=== PATIENT | female | born 1955 | race Two or more races ===

== ENCOUNTER → 2018-10-05 | Day surgery (SDC) | payer OTHER | END | disposition home or self-care (01) | LOC: ADM 10-03 14:45 → AMB-ENDOS 07:07 | DX: K62.7 Radiation proctitis (principal); K94.03 Colostomy malfunction ==

== ENCOUNTER 2018-11-04 09:27 | Inpatient (IN) | payer OTHER ==
[~2018-11-04] VITALS: Ht 154.9 cm; Wt 72.6 kg
[2018-11-04] MEDS ORDERED: ATORVASTATIN CA40 MG PO (09:47)
[2018-11-04] MEDS ORDERED: JANUMET 50-1,01 EACH (09:50)
[2018-11-04] MEDS ORDERED: FENOFIBRATE160 MG (09:50)
[2018-11-04] MEDS ORDERED: RESTORIL30 M1 PO (09:51)
[2018-11-04] MEDS ORDERED: LISINOPRIL20 MG (09:52)
[2018-11-04] MEDS ORDERED: ZOCOR40 MG (09:52)
[2018-11-04] MEDS ORDERED: LOVAZA1 GM (09:53)
[2018-11-04] MEDS ORDERED: VITAMIN D-32000 UNIT (09:53)
[2018-11-04] MEDS ORDERED: PROTONIX40 MG (09:54)
[2018-11-04] MEDS ORDERED: PAROXETINE HCL20 MG (09:54)
--- NOTE | 2018-11-04 09:57 | NUR ---
PTE FEMENINA DE 62 YRS LLEGA EN AMBULANCIA POR OBSTRUCION Y DOLOR ABDOMINAL DESDE CARINE. PTE CON COLOSTOMIA TAPADA.ES PACIENTE DEL .
--- NOTE | 2018-11-04 11:05 | NUR ---
SE ORIENTA PTE SORBE EL TRATAMIENTO ORDENADO POR EL DR COVARRUBIAS PTE ALERTA Y CONCIENTE POR 3 RN DOWNEY REALIZA MUESTRAS DE LABOTORIO Y ADMINISTRA MEDICAMENTO KARY ORDENADO PTE SE MANTIENE EN OBSERVACION
== END 2018-11-09 18:07 | disposition home or self-care (01) | DRG 354 ==
LOC: ER 09:27 → SURH 12:56
PROVIDERS: ADMIT Colon & Rectal Surgery
PROC: 02HV33Z Insertion of Infusion Device into Superior Vena Cava, Percutaneous Approach (ICD-10-PCS; 2018-11-05)
PROC: 3E0336Z Introduction of Nutritional Substance into Peripheral Vein, Percutaneous Approach (ICD-10-PCS; 2018-11-05)
PROC: 0WQF0ZZ Repair Abdominal Wall, Open Approach (ICD-10-PCS; principal; 2018-11-06 13:30)
DX: K94.03 Colostomy malfunction (principal); K43.3 Parastomal hernia with obstruction, without gangrene; K56.690 Other partial intestinal obstruction; K62.7 Radiation proctitis; E78.49 Other hyperlipidemia; F32.9 Major depressive disorder, single episode, unspecified; E11.9 Type 2 diabetes mellitus without complications; F41.8 Other specified anxiety disorders

== ENCOUNTER 2018-11-13 02:02 | Emergency (ER) | payer OTHER ==
[~2018-11-13] VITALS: Ht 154.9 cm; Wt 64.9 kg
[~2018-11-13 02:02] MED LIST: ATORVASTATIN CA40 MG PO; FENOFIBRATE160 MG; JANUMET 50-1,01 EACH; LISINOPRIL20 MG; LOVAZA1 GM; PAROXETINE HCL20 MG; PROTONIX40 MG; RESTORIL30 M1 PO; VITAMIN D-32000 UNIT; ZOCOR40 MG
[2018-11-13] MEDS ORDERED: DICLOFENAC POTA50 MG PO (07:31)
[2018-11-13] MEDS ORDERED: SKELAXIN800 MG PO (07:31)
[2018-11-14] MEDS ORDERED: ORPHENADRINE C100 MG PO (05:01)
[2018-11-14] MEDS ORDERED: NABUMETONE750 MG PO (05:01)
== END 2018-11-13 08:04 | disposition home or self-care (01) ==
LOC: ER 02:02
DX: M62.830 Muscle spasm of back (principal)

== ENCOUNTER 2018-11-13 17:48 | Emergency (ER) | payer OTHER ==
[~2018-11-13] VITALS: Ht 154.9 cm; Wt 72.6 kg
[~2018-11-13 17:48] MED LIST changes: +DICLOFENAC POTA50 MG PO; +SKELAXIN800 MG PO
[2018-11-14] MEDS ORDERED: ORPHENADRINE C100 MG PO (05:01)
[2018-11-14] MEDS ORDERED: NABUMETONE750 MG PO (05:01)
== END 2018-11-14 13:55 | disposition home or self-care (01) ==
LOC: ER 17:48
DX: K76.0 Fatty (change of) liver, not elsewhere classified (principal); N20.0 Calculus of kidney; M54.5 Low back pain